=== PATIENT | female | born 1955 | race Caucasian/White ===

== ENCOUNTER 2019-03-29 11:25 | Outpatient (CLI) | payer BC ==
[2019-03-29] VITALS (21 sets, daily range): BP systolic 127–151; BP diastolic 76–92
== END 2019-03-29 23:59 | disposition home or self-care (01) ==
LOC: CARD DIAG 11:25
PROVIDERS: ATTEND Internal Medicine Cardiovascular Disease
DX: R42 Dizziness and giddiness (principal)
CPT/HCPCS: 93660